=== PATIENT | male | born 1975 | race Caucasian/White ===

== ENCOUNTER 2017-11-13 11:20 | Emergency (ER) | payer OTHER ==
[~2017-11-13] VITALS: Ht 193 cm; Wt 122.5 kg
[2017-11-13] MEDS ORDERED: diazePAM 5 MG TABLET PO ONE (12:45)
[2017-11-13] MEDS ORDERED: OXYC-328 PO (13:46)
[2017-11-13] MEDS ORDERED: CYCL-331 PO (13:46)
--- NOTE | 2017-11-13 13:47 | PHYS DOC ---
Past History Past Medical History: Asthma Past Surgical History: No Surgical History Adult General Chief Complaint Chief Complaint: BACK PAIN OR INJURY HPI HPI Patient is a 42 year old M who presents with lower back pain over the past 2-3 weeks is worse with activity and improved with rest. He states that his pain is worse in the morning and improved with activity however over the past 24 hours this pain is been significantly worse. He denies numbness or tingling. He denies bowel or bladder changes. He has no other associated symptoms. He has no other exacerbating or relieving factors. Review of Systems Review of Systems Constitutional: Denies fever or chills [] Eyes: Denies change in visual acuity, redness, or eye pain [] HENT: Denies nasal congestion or sore throat [] Respiratory: Denies cough or shortness of breath [] Cardiovascular: No additional information not addressed in HPI [] GI: Denies abdominal pain, nausea, vomiting, bloody stools or diarrhea [] : Denies dysuria or hematuria [] Musculoskeletal: Denies joint pain [] Integument: Denies rash or skin lesions [] Neurologic: Denies headache, focal weakness or sensory changes [] Endocrine: Denies polyuria or polydipsia [] All other systems were reviewed and found to be within normal limits, except as documented in this note. Family History Family History No pertinent family medical history was reported Current Medications Current Medications Current Medications Medications (Trade) Dose Ordered Sig/[facility] Start Time Stop Time Status Last Admin Dose Admin Diazepam (Valium) 10 mg 1X ONCE 11/13/17 12:45 11/13/17 12:46 DC 11/13/17 12:36 10 MG Allergies Allergies Allergies Coded Allergies Type Severity Reaction Last Updated Verified No Known Drug Allergies 11/13/17 No Physical Exam Physical Exam Constitutional: Well developed, well nourished, no acute distress, non-toxic appearance. [] HENT: Normocephalic, atraumatic, Eyes: PERRLA, EOMI, conjunctiva normal, no discharge. [] Neck: Normal range of motion, no tenderness, supple, no stridor. [] Cardiovascular:Heart rate regular rhythm, Lungs & Thorax: Bilateral breath sounds clear to auscultation [] Abdomen: Bowel sounds normal, soft, no tenderness, no masses, no pulsatile masses. [] Skin: Warm, dry, no erythema, no rash. [] Back: Moderate bilateral paraspinal muscle spasm noted in the lumbar and lower thoracic spine bilaterally Extremities: No tenderness, no cyanosis, no clubbing, ROM intact, no edema. [] Neurologic: Alert and oriented X 3, normal motor function, normal sensory function, no focal deficits noted. [] Psychologic: Affect normal, judgement normal, mood normal. [] Current Patient Data Vital Signs Vital Signs Date Time Temp Pulse Resp B/P (MAP) Pulse Ox O2 Delivery O2 Flow Rate FiO2 11/13/17 13:19 66 16 125/79 (94) Room Air 11/13/17 12:48 97 11/13/17 11:40 97.8 EKG EKG [] Radiology/Procedures Radiology/Procedures [] Course & Med Decision Making Course & Med Decision Making Pertinent Labs and Imaging studies reviewed. (See chart for details) [] Dragon Disclaimer Dragon Disclaimer This electronic medical record was generated, in whole or in part, using a voice recognition dictation system. Departure Departure: Impression: Primary Impression: Back pain Disposition: HOME, SELF-CARE Condition: STABLE Referrals: PCP,UNKNOWN (PCP) Patient Instructions: Back Pain, Adult Additional Instructions: Evaristo was seen in the emergency department for back pain. No emergency medical condition was found on history or physical exam. His symptoms are most consistent with acute muscle spasm and possible arthritis, or degenerative disc disease. His pain was improved with a muscle relaxer. He is given prescription for muscle relaxer and pain medication. He is encouraged to continue daily activity as tolerated. He was also advised to consider massage therapy. He was encouraged to follow-up with his primary care doctor in the next 3-5 days for further management. Scripts Oxycodone Hcl/Acetaminophen (PERCOCET 10-325 MG TABLET) 1 Each Tablet 1 TAB PO TID for 3 Days, #9 TAB Prov: SAMI RUSHING MD 11/13/17 Cyclobenzaprine Hcl (CYCLOBENZAPRINE HCL) 10 Mg Tablet 1 TAB PO TID Y for PAIN for 3 Days, #9 TAB Prov: SAMI RSUHING MD 11/13/17 Problem Qualifiers Primary Impression: Back pain Back pain location: low back pain Chronicity: acute Back pain laterality: bilateral Sciatica presence: without sciatica Qualified Codes: M54.5 - Low back pain SAMI RUSHING MD Nov 13, 2017 13:47
[2017-11-13 13:51] VITALS: BP 139/96
== END 2017-11-13 13:54 | disposition home or self-care (01) ==
LOC: ER 11:20
DX: M54.5 Low back pain (principal); J45.909 Unspecified asthma, uncomplicated
CPT/HCPCS: 99283

== ENCOUNTER 2018-08-21 15:23 | Emergency (ER) | payer OTHER ==
[~2018-08-21] VITALS: Ht 193 cm; Wt 122.5 kg
[~2018-08-21 15:23] MED LIST: CYCL-331 PO; OXYC1TAB22 PO
[2018-08-21] MEDS ORDERED: ASPIRIN 81 MG TAB.CHEW PO ONE (15:45)
[2018-08-21] MEDS ORDERED: NITROGLYCERIN SUBLINGUAL 0.4 MG BOTTLE OF 25. SL PRN (15:45)
[2018-08-21 15:49] VITALS: BP 132/78
--- NOTE | 2018-08-21 15:50 | PHYS DOC ---
Past History Past Medical History: Asthma, Hypertension Past Surgical History: No Surgical History Smoking: Non-smoker Alcohol Use: Occasionally Drug Use: None Adult General Chief Complaint Chief Complaint: CHEST PAIN HPI HPI Patient is a 43 year old male who presents with complaining of chest pain. Patient complaining of sudden onset of nonexertional substernal and left-sided chest sharp pain without radiation that started about 40 minutes prior to arrival as stated feet shortness of breath. Patient denies radiation of pain, nausea, dizziness, palpitation, cough and congestion, change of pain with position. Patient states the pain started after he had a heavy meal and drinking a beer. Patient states he had 4 episodes of chest pain with mild varus acuity for the last 4-6 weeks and his primary care physician was advised him to go to emergency room if develops chest pain. Patient has history of hypertension and denies other medical problem smoking and family history of coronary artery disease. Patient did not take any medication for his pain today and rated his pain 7/10 at arrival to ER. Review of Systems Review of Systems Constitutional: Denies fever or chills [] Eyes: Denies change in visual acuity, redness, or eye pain [] HENT: Denies nasal congestion or sore throat [] Respiratory: Denies cough or reports shortness of breath [] Cardiovascular: No additional information not addressed in HPI [] GI: Denies abdominal pain, nausea, vomiting, bloody stools or diarrhea [] : Denies dysuria or hematuria [] Musculoskeletal: Denies back pain or joint pain [] Integument: Denies rash or skin lesions [] Neurologic: Denies headache, focal weakness or sensory changes [] Endocrine: Denies polyuria or polydipsia [] All other systems were reviewed and found to be within normal limits, except as documented in this note. Allergies Allergies Allergies Coded Allergies Type Severity Reaction Last Updated Verified No Known Drug Allergies 11/13/17 No Physical Exam Physical Exam Constitutional: Well developed, well nourished, mild distress, non-toxic appearance. [] HENT: Normocephalic, atraumatic Eyes: PERRLA, EOMI, conjunctiva normal, no discharge. [] Neck: Normal range of motion, no tenderness, supple, no stridor. [] Cardiovascular:Heart rate regular rhythm, no murmur [] Lungs & Thorax: Bilateral breath sounds clear to auscultation [] Abdomen: Bowel sounds normal, soft, no tenderness, no masses, no pulsatile masses. [] Skin: Warm, dry, no erythema, no rash. [] Back: No tenderness, no CVA tenderness. [] Extremities: No tenderness, no cyanosis, no clubbing, ROM intact, no edema. [] Neurologic: Alert and oriented X 3, normal motor function, normal sensory function, no focal deficits noted. [] Psychologic: Affect normal, judgement normal, mood normal. [] EKG EKG EKG interpreted by me. EKG at 1541 showed normal sinus rhythm at rate of 84, no acute ST-T wave abnormalities.[] Radiology/Procedures Radiology/[place] [address] IMAGING REPORT Signed PATIENT: SOPHIA SULLIVAN ACCOUNT: [id number] : 1975 LOCATION: ER AGE: 43 SEX: M EXAM STATUS: PRE ER ORD. PHYSICIAN: BENJAMIN OSORIO MD REASON: chest pain PROCEDURE: PORTABLE CHEST 1V Exam performed: One view chest. Indication: Chest pain x 1 day, no hx of heart or lung disease, pt shielded Date of Service: 08/21/2018 2:51 PM Comparison: None available. Single AP upright portable view chest findings: Cardiomediastinal silhouette is within limits of normal. No acute infiltrates, effusion or pneumothorax is detected. The bony structures are normal. Impression: No acute cardiopulmonary process is detected. Electronically signed by: Pacheco Serra MD (08/21/2018 4:15 PM) [facility] DICTATED AND SIGNED BY: PACHECO SERRA MD DATE: 08/21/18 1609 CC: BENJAMIN OSORIO MD; JOAN WHITFIELD DO ~ Course & Med Decision Making Course & Med Decision Making Pertinent Labs and Imaging studies reviewed. (See chart for details) Evaluation of patient in ER showed 42-year-old male patient with complaining of chest pain after eating enlargement today. Patient had unremarkable physical exam and labs and EKG and chest x-ray except for elevation of hemoglobin. Patient has one 1 cardiac risk factor of hypertension. Patient had few episodes of mild chest pain for the last few weeks. Patient treated and nitroglycerin 1 and GI cocktail and felt better. Patient was advised to follow-up with his primary care physician for possible outpatient gallbladder ultrasound and stress tests. Dragon Disclaimer Dragon Disclaimer This electronic medical record was generated, in whole or in part, using a voice recognition dictation system. Departure Departure: Impression: Primary Impression: Chest pain Additional Impression: Dehydration Disposition: HOME, SELF-CARE (at 1649) Condition: IMPROVED Referrals: JOAN WHITFIELD DO (PCP) Patient Instructions: Chest Pain (Nonspecific), Dehydration, Adult Additional Instructions: Drink plenty of liquids Follow-up with your primary care physician in 2-3 days for possible outpatient stress test and gallbladder ultrasound. Return to ER if not getting better Problem Qualifiers BENJAMIN OSORIO MD Aug 21, 2018 15:50
[2018-08-21 15:52] LABS: BASO % 1 % (0-3); EOS # 0.1 x10^3/uL (0.0-0.7); EOS % 1 % (0-3); HEMATOCRIT 53.5 % (39.0-53.0); HEMOGLOBIN 18.5 g/dL (13.0-17.5); LYMPH # 2.1 x10^3/uL (1.0-4.8); LYMPH % 30 % (24-48); MEAN CORPUSCULAR HEMOGLOBIN 32 pg (25-35); MEAN CORPUSCULAR HGB CONC 35 g/dL (31-37); MEAN CORPUSCULAR VOLUME 93 fL (79-100); MONO # 0.5 x10^3/uL (0.0-1.1); MONO % 7 % (0-9); NEUT # 4.3 x10^3uL (1.8-7.7); NEUT % 62 % (31-73); PLATELET COUNT 193 x10^3/uL (140-400); RED BLOOD COUNT 5.73 x10^6/uL (4.30-5.70); RED CELL DISTRIBUTION WIDTH 14.1 % (11.5-14.5)
[2018-08-21 16:09] LABS: ALBUMIN 4.3 g/dL (3.4-5.0); ALBUMIN/GLOBULIN RATIO 1.2 (1.0-1.7); CALCIUM 8.9 mg/dL (8.5-10.1); CREATININE 1.1 mg/dL (0.7-1.3); GFR 73.1; POTASSIUM 3.5 mmol/L (3.5-5.1); TOTAL PROTEIN 7.8 g/dL (6.4-8.2)
--- NOTE | 2018-08-21 16:19 | RAD ---
Exam performed: One view chest. Indication: Chest pain x 1 day, no hx of heart or lung disease, pt shielded Date of Service: 08/21/2018 2:51 PM Comparison: None available. Single AP upright portable view chest findings: Cardiomediastinal silhouette is within limits of normal. No acute infiltrates, effusion or pneumothorax is detected. The bony structures are normal. Impression: No acute cardiopulmonary process is detected. Electronically signed by: Rosaline Serra MD (08/21/2018 4:15 PM) [facility]
[2018-08-21] MEDS ORDERED: LIDO:MAALOX 1:1 20 ML SINGLE DOSE. PO ONE ×2 (16:55)
--- NOTE | 2018-08-22 09:10 | EKG ---
[address] [address] Test Date: 2018-08-21 Test Time: 15:41:30 Pat Name: SOPHIA SULLIVAN Department: Room: Gender: M [employer] Professor: : 1975 Requested By: BENJAMIN OSORIO Order Number: [id number] Reading MD: Niko Carson MD Measurements Intervals [place] Rate: 84 P: 23 MD: 160 QRS: 21 QRSD: 100 T: 3 QT: 344 QTc: 410 Interpretive Statements SINUS RHYTHM Electronically Signed On 08-23-2018 10:10:44 [facility] by Niko Carson MD
== END 2018-08-21 17:00 | disposition home or self-care (01) ==
LOC: ER 15:23
DX: R07.2 Precordial pain (principal); E86.0 Dehydration; J45.909 Unspecified asthma, uncomplicated; I10 Essential (primary) hypertension
CPT/HCPCS: 36415; 71045; 80053; 82550; 83690; 83735; 83880; 84484; 85025; 85610; 93005; 99284